=== PATIENT | male | born 1995 | race Caucasian/White ===

== ENCOUNTER 2017-09-25 05:59 | Emergency (ER) | payer SELFPAY ==
[~2017-09-25] VITALS: Ht 180.3 cm; Wt 150.0 kg
[2017-09-25] MEDS ORDERED: ACETAMINOPHEN 500 MG TABLET ONE (06:43)
[2017-09-25] MEDS ORDERED: SODIUM CHLORIDE FLUSH 10ML SYR IVF ONE (07:00)
[2017-09-25] MEDS ORDERED: ACETAMINOPHEN 500 MG TABLET PO ONE (07:00)
[2017-09-25] MEDS ORDERED: SODIUM CHLORIDE 0.9% 1,000ML IVBOLUS ONE (07:00)
[2017-09-25 07:20] LABS: BASOPHILS # (AUTO) 0.02 x10^3/uL (0-0.3); BASOPHILS % (AUTO) 0 % (0-1); EOSINOPHILS # (AUTO) 0.06 x10^3/uL (0-0.8); EOSINOPHILS % (AUTO) 1 % (1-7); LYMPHOCYTES # (AUTO) 1.03 x10^3/uL (1-6.1); LYMPHOCYTES % (AUTO) 18 % (22-44); MD NO; MEAN CORPUSCULAR HGB CONC 34.2 g/dL (33.2-36.2); MEAN CORPUSCULAR VOLUME 84.9 fL (81-97); MEAN PLATELET VOLUME 8.6 fL (7.4-10.4); MONOCYTES # (AUTO) 0.67 x10^3/uL (0-1.4); MONOCYTES % (AUTO) 12 % (2-9); NEUTROPHILS # (AUTO) 3.93 x10^3/uL (1.8-8.0); NEUTROPHILS % (AUTO) 69 % (42-75); PLATELET COUNT 164 x10^3/uL (130-400); RED BLOOD COUNT 5.46 x10^6/uL (4.38-5.82); RED CELL DISTRIBUTION WIDTH 13.6 % (9.4-14.8)
[2017-09-25 07:24] LABS: RAPID INFLUENZA A POSITIVE (Negative); RAPID INFLUENZA B Negative (Negative)
[2017-09-25 07:30] LABS: ALBUMIN 3.6 g/dL (3.4-5.0); ANION GAP 9 mmol/L (5-15); CALCIUM 8.7 mg/dL (8.5-10.1); CHLORIDE 107 mmol/L (98-107); CREATININE 1.08 mg/dL (0.7-1.3)
[2017-09-25 09:03] LABS: MICROSCOPIC AUTO
[2017-09-25 09:06] LABS: CULTURE INDICATED? NO
[2017-09-25 09:31] VITALS: BP 108/58
== END 2017-09-25 09:34 | disposition home or self-care (01) ==
LOC: ED 09:28
DX: J09.X2 Influenza due to identified novel influenza A virus with other respiratory manifestations (principal); M79.1 Myalgia
CPT/HCPCS: 36415; 71045; 80048; 81001; 82040; 83605; 84145; 85025; 87040; 87400; 93005; 96360; 96361; 99285; J7030

== ENCOUNTER 2017-11-01 16:11 | Emergency (ER) | payer OTHER ==
[~2017-11-01] VITALS: Ht 182.9 cm; Wt 141.2 kg
[2017-11-01 16:13] VITALS: BP 161/101
[2017-11-01] MEDS ORDERED: LIDOCAINE-MPF 1%, 5ML INFIL ONE (16:30)
== END 2017-11-01 17:02 | disposition home or self-care (01) ==
LOC: ED 16:40
DX: L05.01 Pilonidal cyst with abscess (principal)
CPT/HCPCS: 10080; 99284

== ENCOUNTER 2020-06-22 12:19 | Emergency (ER) | payer SELFPAY ==
[~2020-06-22] VITALS: Ht 182.9 cm; Wt 159.4 kg
[2020-06-22] MEDS ORDERED: OXYcodone/APAP 5/325MG TABLET ONE ×2 (12:46→12:50)
[2020-06-22] MEDS ORDERED: OXYcodone/APAP 5/325MG TABLET PO ONE (13:00)
[2020-06-22 13:33] VITALS: BP 145/104
== END 2020-06-22 13:36 | disposition home or self-care (01) ==
LOC: ED 13:30
DX: L05.01 Pilonidal cyst with abscess (principal)
CPT/HCPCS: 10080; 99283

== ENCOUNTER 2020-06-25 13:13 | Emergency (ER) | payer SELFPAY ==
[~2020-06-25] VITALS: Ht 182.9 cm; Wt 160.9 kg
--- NOTE | 2020-06-25 13:55 | NUR ---
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
[2020-06-25 14:39] VITALS: BP 154/99
--- NOTE | 2020-06-25 14:47 | NUR ---
break RN note: report taken from ANDREEA Hernandez. abcess assessed, repacked and dressed by RANDY Haile. CARMEN Shah notified pt has HR 119, ok'd dc. pt a&o, resps even and unlabored, nadn. pt given dc instructions , instructed to continue abx as previously prescribed. pt ambulatory to dc desk with steady gait.
== END 2020-06-25 14:48 | disposition home or self-care (01) ==
LOC: ED 14:42
DX: L05.01 Pilonidal cyst with abscess (principal)
CPT/HCPCS: 99282